=== PATIENT | female | born 1960 | race Caucasian/White ===

== ENCOUNTER 2022-05-19 10:52 | Outpatient (CLI) | payer BC | END 2022-05-19 10:53 | disposition home or self-care (01) | LOC: BICMAMMO 10:52 | PROVIDERS: ATTEND Family Medicine | DX: Z12.31 Encounter for screening mammogram for malignant neoplasm of breast (principal); N63.20 Unspecified lump in the left breast, unspecified quadrant | CPT/HCPCS: 77063; 77067 ==